=== PATIENT | female | born 1980 | race Caucasian/White ===

== ENCOUNTER 2018-01-11 17:25 | Emergency (ER) | payer OTHER ==
[2018-01-11 17:28] VITALS: BMI 25.7
[2018-01-11 17:34] VITALS: TEMP 98.1
--- NOTE | 2018-01-11 18:21 | ED PDOC ---
Arrival/HPI - General Chief Complaint: Dizziness/Lightheaded Time Seen by Provider: 01/11/18 17:34 Historian: Patient - History of Present Illness Narrative History of Present Illness (Text): 01/11/18 18:14 Pt is a 38 yr old [place] female with PMH of seizures, BIBA for vomiting and dizziness for the pst day. Pt reports vomiting yesterday twice but feels very unsteady on her feet and cannot walk. Patient has medication for seizures and had an EEG done recently, and has been compliant with her medication but feels like she is having a seizure. Also reports LLQ pain but no diarrhea or difficult BMs. Pt's LMP was 3 wks ago and is not sexually active. Her last meal was a sandwich at 1pm today and tolerated the meal well. Currently takes Keppra and Lamotrigine. Time/Duration: 24 hours Symptom Onset: Sudden Symptom Course: Unchanged, Worsening Quality: Unable to Describe Severity Level: 2 Activities at Onset: Rest Context: Home Past Medical History - Provider Review Nursing Documentation Reviewed: Yes - Travel History Have you recently traveled outside [place] w/in the past 3 mons?: No - Cardiac Hx Cardiac Disorders: No - Pulmonary Hx Respiratory Disorders: No - Neurological Hx Seizures: Yes - HEENT Hx HEENT Disorder: No - Renal Hx Renal Disorder: No - Endocrine/Metabolic Hx Endocrine Disorders: No - Hematological/Oncological Hx Blood Disorders: No - Integumentary Hx Dermatological Disorder: No - Musculoskeletal/Rheumatological Hx Musculoskeletal Disorders: No - Gastrointestinal Hx Gastrointestinal Disorders: No - Genitourinary/Gynecological Hx Genitourinary Disorders: No - Psychiatric Hx Psychophysiologic Disorder: No Hx Substance Use: No Family/Social History - Physician Review Nursing Documentation Reviewed: Yes Family/Social History: Unknown Family HX Smoking Status: Never Smoked Hx Alcohol Use: No Hx Substance Use: No Allergies/Home Meds Allergies/Adverse Reactions: Allergies No Known Allergies Allergy (Verified 01/11/18 17:28) Home Medications: Home Meds Medication Instructions Recorded Confirmed levETIRAcetam [Keppra] 0 mg PO DAILY 01/11/18 01/11/18 Review of Systems - Review of Systems Constitutional: Fatigue Eyes: Normal ENT: Normal Respiratory: Normal Cardiovascular: Normal Gastrointestinal: Abdominal Pain Genitourinary Female: Normal Musculoskeletal: Normal Skin: Normal Neurological: Normal, Dizziness, Gait Changes Endocrine: Normal Hemo/Lymphatic: Normal Psychiatric: Normal Physical Exam Vital Signs Temp Pulse Resp BP Pulse Ox 01/11/18 21:20 71 16 108/70 100 01/11/18 19:53 66 18 127/69 100 01/11/18 17:34 98.1 F 62 18 133/89 99 Temperature: Afebrile Blood Pressure: Normal Pulse: Regular Respiratory Rate: Normal Appearance: Positive for: Well-Appearing, Non-Toxic, Comfortable Pain Distress: None Mental Status: Positive for: Alert and Oriented X 3 - Systems Exam Head: Present: Atraumatic, Normocephalic Pupils: Present: PERRL, Sluggish Extroacular Muscles: Present: EOMI Conjunctiva: Present: Normal Mouth: Present: Moist Mucous Membranes Neck: Present: Normal Range of Motion Respiratory/Chest: Present: Clear to Auscultation, Good Air Exchange. No: Respiratory Distress, Accessory Muscle Use Cardiovascular: Present: Regular Rate and Rhythm, Normal S1, S2. No: Murmurs Abdomen: No: Tenderness, Distention, Peritoneal Signs Back: Present: Normal Inspection Upper Extremity: Present: Normal Inspection. No: Cyanosis, Edema Lower Extremity: Present: Normal Inspection. No: Edema Neurological: Present: GCS=15, CN II-XII Intact, Speech Normal Skin: Present: Warm, Dry, Normal Color. No: Rashes Psychiatric: Present: Alert, Oriented x 3, Normal Insight, Normal Concentration Medical Decision Making ED Course and Treatment: 01/11/18 18:21 Impression Pt is a 38 yr old [place] female with PMH of seizures, BIBA for vomiting and dizziness for the past day. Pt presents lethargic and uncooperative, possible post-ictal state; on exam, LLQ tenderness as well Plan Labs, zofran fluids Progress Note 01/11/18 19:03 Ativan 1mg STAT Head CT w/o contrast neuro consult Pt sates her neurologist in Dr Boswell in [facility] 01/11/18 20:11 Spoke with pts neurologist who indicated that pt was seen in office the other day; Keppra was being decreased while Lamictal was prescribed at a dose of 200mg bid but pt was only taking 100mg BID; pt had sudden drop from 200mg to 100mg overnight Medication schedule for next 2 wks as per specialist, and fully explained to patient: Week One: Lamicatal 125mg q12 Week Two: Lamicatal 150 mg q12 Keppra 1000mg q12 hrs every day x 2 weeks Follow up with neurologist on Saturday Treatment for UTI w macrobid STAT Home with macrobid 100 mg BID x 7 days 01/11/18 23:29 Pt stable on discharge - Lab Interpretations Lab Results: 01/11/18 17:47 01/11/18 17:47 Lab Results 01/11/18 19:27: Urine Opiates Screen Negative, Urine Methadone Screen Negative, Ur Barbiturates Screen Negative, Ur Phencyclidine Scrn Negative, Ur Amphetamines Screen Negative, U Benzodiazepines Scrn Negative, U Oth Cocaine Metabols Negative, U Cannabinoids Screen Negative 01/11/18 19:27: Urine Color Yellow, Urine Appearance Sl cloudy, Urine pH 6.5, Ur Specific [place] 1.010, Urine Protein Negative, Urine Glucose (UA) Negative, Urine Ketones 15 H, Urine Blood Negative, Urine Nitrate Negative, Urine Bilirubin Negative, Urine Urobilinogen 0.2, Ur Leukocyte Esterase Small H, Urine RBC 0 - 2, Urine WBC 2 - 5, Ur Epithelial Cells 1 - 3, Urine Bacteria Mod 01/11/18 17:47: Alcohol, Quantitative < 10 01/11/18 17:47: Sodium 143, Potassium 3.7, Chloride 103, Carbon Dioxide 26, Anion Gap 18, BUN 8, Creatinine 0.6 L, Est GFR ( Amer) > 60, Est GFR (Non -Af Amer) > 60, Random Glucose 101, Calcium 8.7, Magnesium 1.8, Total Bilirubin 0.3, AST 26, ALT 19, Alkaline Phosphatase 33 L, Total Protein 7.4, Albumin 4.4, Globulin 3.1, Albumin/Globulin Ratio 1.4 01/11/18 17:47: WBC 9.1, RBC 4.18, Hgb 12.9, Hct 37.7, MCV 90.2, MCH 30.9, MCHC 34.2, RDW 12.1, Plt Count 244, MPV 10.8, Gran % 70.3 H, Lymph % (Auto) 25.3, [place] % (Auto) 3.9, Eos % (Auto) 0.3 L, Baso % (Auto) 0.2, Gran # 6.36, Lymph # ( Auto) 2.3, [place] # (Auto) 0.4, Eos # (Auto) 0.0, Baso # (Auto) 0.02 - RAD Interpretation Radiology Orders: 01/11/18 19:05 HEAD W/O CONTRAST [CT] Stat - EKG Interpretation Interpreted by ED Physician: Yes (NSR with a rate of 63) - Medication Orders Current Medication Orders: Discontinued Medications Lorazepam (Ativan) 1 mg IVP ONCE ONE PRN Reason: Protocol Stop: 01/11/18 19:07 Last Admin: 01/11/18 19:15 Dose: 1 mg IVP Administration Document 01/11/18 19:15 RD (Rec: 01/11/18 19:15 RD [id number]) Charges for Administration # of IVP Administrations 1 Nitrofurantoin Macrocrystals (Macrobid) 100 mg PO STAT STA PRN Reason: Protocol Stop: 01/11/18 20:11 Last Admin: 01/11/18 20:33 Dose: 100 mg Ondansetron HCl (Zofran Inj) 4 mg IVP STAT STA Stop: 01/11/18 18:14 Last Admin: 01/11/18 18:22 Dose: 4 mg IVP Administration Document 01/11/18 18:22 RD (Rec: 01/11/18 18:22 RD [id number]) Charges for Administration # of IVP Administrations 1 Disposition/Present on Arrival - Present on Arrival Any Indicators Present on Arrival: Yes History of DVT/PE: No History of Uncontrolled Diabetes: No Urinary Catheter: No History of Decub. Ulcer: No History Surgical Site Infection Following: None - Disposition Have Diagnosis and Disposition been Completed?: Yes Diagnosis: Noncompliance with medication regimen, UTI (urinary tract infection) Disposition: HOME/ ROUTINE Disposition Time: 20:48 Patient Plan: Discharge Condition: GOOD Discharge Instructions (ExitCare): Urinary Tract Infections in Adults, Seizures , Adult (DC) Additional Instructions: Linda, thank you for letting us take care of you today. Your provider was MATTHEW Mario. You were treated for medication dosing error and a urinary tract infection. The emergency medical care you received today was directed at your acute symptoms. If you were prescribed any medication, please fill it and take as directed. It may take several days for your symptoms to resolve. Return to the Emergency Department if your symptoms worsen, do not improve, or if you have any other problems. Week ONE: Keppra 1000mg in the morning and 1000mg in the evening Lamicatal 125mg in the morning and 125mg in the evening Macrobid anitbiotic 100mg capsule in the morning and 100mg capsule in the evening for a urinary tract infection Week TWO: Keppra 1000mg in the morning and 1000mg in the evening Lamicatal 150mg in the morning and 150mg in the evening Please call your neurologist, Dr Boswell on SATURDAY If you have any sudden, alarming symptoms in the next 24hrs, return to the ER Please contact your doctor or call one of the physicians/clinics you have been referred to that are listed on the Patient Visit Information form that is included in your discharge packet. Bring any paperwork you were given at discharge with you along with any medications you are taking to your follow up visit. Our treatment cannot replace ongoing medical care by a primary care provider (PCP) outside of the emergency department. Thank you for allowing the [facility] team to be part of your care today. If you had an X-Ray or CT scan: A Radiologist will review the ED reading if any change in treatment is needed we will contact you. If you had a blood, urine, or wound culture: It will take several days for the results, if any change in treatment is needed we will contact you. Prescriptions: lamoTRIgine [LaMICtal] 125 mg PO Q12 7 Days #14 tab Lamotrigine [Lamictal] 150 mg PO Q12 7 Days #14 tablet Levetiracetam [Keppra] 1,000 mg PO Q12 14 Days #28 tablet Nitrofurantoin Macrocrystals [Macrobid] 100 mg PO BID 7 Days #14 cap Referrals: Tom Hillman, [Primary Care Provider] - Follow up with primary Forms: [employer] (Romansh), WORK NOTE
[2018-01-11 18:29] LABS: BASO # 0.02 K/mm3 (0.0-2.0); BASO % 0.2 % (0.0-3.0); EOS % 0.3 % (1.5-5.0); GRAN # 6.36 (1.4-6.5); GRAN % 70.3 % (50.0-68.0); HEMOGLOBIN 12.9 g/dL (12.0-16.0); LYMPH # 2.3 (1.2-3.4); LYMPH % 25.3 % (22.0-35.0); MEAN CELL VOLUME 90.2 fl (80.0-105.0); MEAN CORPUSCULAR HEMOGLOBIN 30.9 pg (25.0-35.0); MEAN CORPUSCULAR HGB CONC 34.2 g/dl (31.0-37.0); MEAN PLATELET VOLUME 10.8 fl (7.0-11.0); MONO # 0.4 (0.1-0.6); MONO % 3.9 % (1.0-6.0); RBC 4.18 10^6/uL (3.5-6.1); RED CELL DISTRIBUTION WIDTH 12.1 % (11.5-14.5); WHITE BLOOD COUNT 9.1 10^3/ul (4.5-11.0)
[2018-01-11 18:42] LABS: ALBUMIN 4.4 g/dL (3.0-4.8); CALCIUM 8.7 mg/dL (8.4-10.5); GFR AFRICAN-AMERICAN > 60; GFR NON-AFRICAN AMERICAN > 60
[2018-01-11 18:43] LABS: ALB/GLOB RATIO 1.4 (1.1-1.8)
[2018-01-11 19:18] LABS: ALT/SGPT 19 U/L (7-56); AST/SGOT 26 U/L (14-36); BLOOD UREA NITROGEN 8 mg/dL (7-21)
[2018-01-11 19:46] LABS: PHENCYCLIDINE, UR NEGATIVE (NEGATIVE)
[2018-01-11 19:49] LABS: PH,URINE 6.5 (4.7-8.0); URINE BILIRUBIN NEGATIVE (NEGATIVE); URINE BLOOD NEGATIVE (NEGATIVE); URINE GLUCOSE (UA) NEGATIVE (NEGATIVE); URINE LEUKOCYTE ESTERASE SMALL Leu/uL (NEGATIVE); URINE PROTEIN NEGATIVE mg/dL (<30 mg/dL); URINE UROBILINOGEN 0.2 E.U./dL (<1 E.U./dL)
[2018-01-11 19:53] LABS: BARBITURATES, UR NEGATIVE (NEGATIVE); BENZODIAZEPINES, UR NEGATIVE (NEGATIVE); OPIATES, UR NEGATIVE (NEGATIVE)
[2018-01-11 19:54] VITALS: O2SAT 100
[2018-01-11 19:55] LABS: URINE APPEARANCE SL CLOUDY (CLEAR); URINE COLOR YELLOW (YELLOW)
[2018-01-11 20:12] LABS: URINE BACTERIA MOD (NEG); URINE RBC 0 - 2 /hpf (0-2)
[2018-01-11 21:22] VITALS: BP 108/70; PULSE 71; RESP 16
--- NOTE | 2018-01-11 21:24 | CT ---
EXAM: CT Head Without Intravenous Contrast CLINICAL HISTORY: 38 years old, female; Condition or disease; Other: Seizures TECHNIQUE: Axial computed tomography images of the head/brain without intravenous contrast. All CT scans at this facility use one or more dose reduction techniques, viz.: automated exposure control; ma/kV adjustment per patient size (including targeted exams where dose is matched to indication; i.e. head); or iterative reconstruction technique. Coronal and sagittal reformatted images were created and reviewed. COMPARISON: No relevant prior studies available. FINDINGS: Brain: No hemorrhage. No significant white matter disease. No edema. Ventricles: No hydrocephalus. Bones/soft tissue: Skull is intact. Approximately 2 cm oval radiodense focus at the lateral aspect of the right mandible, question etiology. Further evaluation recommended. Sinuses: No acute sinusitis. Mastoid air cells: No mastoid effusion. IMPRESSION: No CT evidence of acute intracranial abnormality. Approximately 2 cm oval radiodense focus at the lateral aspect of the right mandible, question etiology. Further evaluation recommended.
--- NOTE | 2018-01-12 15:44 | CARD ---
APPROVED REPORT EKG Measurement Heart [id number] <Conclusion> Normal sinus rhythm Normal ECG
== END 2018-01-11 21:20 | disposition home or self-care (01) ==
LOC: ED 17:25
DX: N39.0 Urinary tract infection, site not specified (principal)
CPT/HCPCS: 70450; 80053; 80175; 80177; 80320; 80324; 80345; 80346; 80349; 80353; 80358; 80361; 81001; 83735; 83992; 85025; 87086; 93005; 96374; 96375; 99285; J2060; J2405

== ENCOUNTER 2018-05-09 16:40 | Emergency (ER) | payer OTHER ==
[2018-05-09 16:41] VITALS: BMI 25.7
[2018-05-09 17:08] VITALS: TEMP 98.4; O2SAT 100
--- NOTE | 2018-05-09 17:18 | ED PDOC ---
Arrival/HPI - General Historian: Patient - History of Present Illness Narrative History of Present Illness (Text): 05/09/18 16:48 38 y/o female with PMH of seizure disorder who presents to the ED c/o headache x 3 hours. Headache is circumferential around forehead and temples. She has not taken any medication for pain. Admits to associated intermittent photophobia, nausea, blurry vision, sore throat, difficulty with balance, and bilateral numbness to upper/lower extremities. She takes Lamictal 200mg bid and is compliant. Pt states she had a seizure this morning without a postictal period that consisted of a few seconds of "inability to talk or move". No head injury, LOC, tongue biting, incontinence. She has an neurology appointment and EEG with her neurologist Dr. Marinelli in [facility] on May 22. When asked about hydration, pt states she "never drinks water". Denies fever, chills, paresthesias, changes in speech, unilateral weakness or numbness, chest pain, palpitations, syncope,aura, jaw claudication, vomiting, abdominal pain, SOB, cough, rash, urinary symptoms. <Angelina Holguin - Last Filed: 05/09/18 20:16> <Jacky Roca - Last Filed: 05/10/18 15:52> - General Time Seen by Provider: 05/09/18 16:43 Past Medical History - Provider Review Nursing Documentation Reviewed: Yes - Cardiac Hx Cardiac Disorders: No - Pulmonary Hx Respiratory Disorders: No - Neurological Hx Seizures: Yes - HEENT Hx HEENT Disorder: No - Renal Hx Renal Disorder: No - Endocrine/Metabolic Hx Endocrine Disorders: No - Hematological/Oncological Hx Blood Disorders: No - Integumentary Hx Dermatological Disorder: No - Musculoskeletal/Rheumatological Hx Musculoskeletal Disorders: No - Gastrointestinal Hx Gastrointestinal Disorders: No - Genitourinary/Gynecological Hx Genitourinary Disorders: No - Psychiatric Hx Psychophysiologic Disorder: No Hx Substance Use: No <Angelina Holguin - Last Filed: 05/09/18 20:16> Family/Social History - Physician Review Nursing Documentation Reviewed: Yes Family/Social History: No Known Family HX Smoking Status: Never Smoked Hx Alcohol Use: No Hx Substance Use: No <Angelina Holguin - Last Filed: 05/09/18 20:16> Allergies/Home Meds <Angelina Holguin - Last Filed: 05/09/18 20:16> <Rush Rocayl - Last Filed: 05/10/18 15:52> Allergies/Adverse Reactions: Allergies No Known Allergies Allergy (Verified 05/09/18 17:07) Home Medications: Home Meds Medication Instructions Recorded Confirmed levETIRAcetam [Keppra] 0 mg PO DAILY 01/11/18 01/11/18 Review of Systems - Physician Review All systems were reviewed & negative as marked: Yes - Review of Systems Constitutional: Fatigue. absent: Fevers Eyes: Vision Changes (blurry vision), Photophobia. absent: Eye Pain ENT: Sore Throat. absent: Hearing Changes, Tinnitus, Rhinorrhea, Epistaxis, Sinus Congestion Respiratory: Normal. absent: SOB, Cough, Sputum Cardiovascular: Normal. absent: Chest Pain, Palpitations, Syncope Gastrointestinal: Normal Genitourinary Female: Normal. absent: Dysuria, Frequency, Vaginal Bleeding, Vaginal Discharge Musculoskeletal: Neck Pain (paraspinal cervical, left sided) Skin: Normal. absent: Rash Neurological: Headache Endocrine: absent: Diaphoresis <ChasewillAngelina - Last Filed: 05/09/18 20:16> Physical Exam Vital Signs Reviewed: Yes Temperature: Afebrile Blood Pressure: Normal Pulse: Regular Respiratory Rate: Normal Appearance: Positive for: Well-Appearing, Non-Toxic, Comfortable Pain Distress: None Mental Status: Positive for: Alert and Oriented X 3 - Systems Exam Head: Present: Atraumatic, Normocephalic Pupils: Present: PERRL Extroacular Muscles: Present: EOMI Conjunctiva: Present: Normal Ears: Present: Normal Mouth: Present: Dry Pharnyx: Present: Normal. No: ERYTHEMA, EXUDATE, TONSILS ENLARGED Nose (External): Present: Atraumatic Nose (Internal): Present: Normal Inspection, Moist, Clear Mucous Neck: Present: Normal Range of Motion, Paraspinal Tenderness (left side). No: MIDLINE TENDERNESS, Lymphadenopathy Respiratory/Chest: Present: Clear to Auscultation, Good Air Exchange. No: Respiratory Distress, Accessory Muscle Use Cardiovascular: Present: Regular Rate and Rhythm, Normal S1, S2, Peripheal P ulses Present. No: Murmurs Abdomen: No: Tenderness, Distention, Peritoneal Signs Back: Present: Normal Inspection. No: Midline Tenderness, Paraspinal Tenderness Upper Extremity: Present: Normal Inspection, Normal ROM, NORMAL PULSES Lower Extremity: Present: Normal Inspection, NORMAL PULSES, Normal ROM Neurological: Present: GCS=15, CN II-XII Intact, Speech Normal, Motor Func Grossly Intact, Normal Sensory Function, Normal Cerebellar Funct, Gait Normal, Memory Normal Skin: Present: Warm, Dry, Normal Color. No: Rashes Lymphatic: No: Cervical Adenopathy Psychiatric: Present: Alert, Oriented x 3, Normal Insight, Normal Concentration <Angelina Holguin - Last Filed: 05/09/18 20:16> Vital Signs Temp Pulse Resp BP Pulse Ox 05/09/18 19:50 98.4 F 65 18 117/78 100 05/09/18 18:16 65 18 117/78 100 05/09/18 17:03 98.4 F 63 17 118/76 100 <Jacky Roca - Last Filed: 05/10/18 15:52> Medical Decision Making ED Course and Treatment: 05/09/18 17:54 38 y/o female with PMH of seizure disorder who presents to the ED c/o headache x 3 hours. Headache is circumferential around forehead and temples. She has not taken any medication for pain. Admits to associated intermittent photophobia, nausea, blurry vision, sore throat, difficulty with balance, and bilateral numbness to upper/lower extremities. She takes Lamictal 200mg bid and is compliant. Pt states she had a seizure this morning without a postictal period that consisted of a few seconds of "inability to talk or move". No head injury, LOC, tongue biting, incontinence. She has an neurology appointment and EEG with her neurologist Dr. Marinelli in [facility] on May 22. When asked about hydration, pt states she "never drinks water". Denies fever, chills, paresthesias, changes in speech, unilateral weakness or numbness, chest pain, palpitations, syncope,aura, jaw claudication, vomiting, abdominal pain, SOB, cough, rash, urinary symptoms. Will give IV fluid bolus Will get labs (CBC, CMP) Will check lamictal levels Dr. Roca also saw and evaluated pt. Recommends phone call to Dr. Romero, the neurologist tonsorial artist. 05/09/18 18:17 Spoke with neurology tonsorial artist, Dr. Romero. She states that the pts symptoms are not anatomical and after bloodwork is reviewed, she recommends outpatient followup. Dr. Romero does not recommend admission or any brain imaging at this time. She recommends an extra 200mg dose of Lamictal in addition to patient's typical regimen. Dr. Romero states she will call Dr. Marinelli to help facilitate scheduling of outpatient MRI. Will give 200mg Lamictal PO 05/09/18 18:49 Pt reassessed after fluid bolus, feeling better. Concerned about the extra dose of Lamictal. Will consult Dr. Romero. Spoke with Dr. Romero who confirmed total dose of 600mg Lamictal today (regular regimen + extra dose). Gave Dr. Nick Marinelli's information so that they can discuss pt's outpatient followup. 05/09/18 19:13 Pt offered medicine for headache again, pt refuses. 05/09/18 19:16 Impression: Headache Plan: Increase fluid intake Take 200mg Lamictal dose tonight as scheduled Followup with neurologist within 2 days Followup with primary doctor within 2 days Return to ED if symptoms persist or worsen Plan discussed with pt and family who understand and agree. Pt comfortable with discharge home. - Lab Interpretations I have reviewed the lab results: Yes Interpretation: All labs normal <Angelina Holguin - Last Filed: 05/09/18 20:16> - Lab Interpretations Lab Results: 05/09/18 18:00 05/09/18 18:00 Lab Results 05/09/18 18:02: Urine Color Yellow, Urine Appearance Clear, Urine pH 7.0, Ur Specific Al[place] 1.015, Urine Protein Negative, Urine Glucose (UA) Negative, Urine Ketones Negative, Urine Blood Negative, Urine Nitrate Negative, Urine Bilirubin Negative, Urine Urobilinogen 0.2, Ur Leukocyte Esterase Negative 05/09/18 18:00: Sodium 141, Potassium 4.2, Chloride 103, Carbon Dioxide 29, Anion Gap 13, BUN 8, Creatinine 0.6 L, Est GFR ( Amer) > 60, Est GFR (Non-Af Amer) > 60, Random Glucose 119 H, Calcium 9.0, Total Bilirubin 0.2, AST 20, ALT 16, Alkaline Phosphatase 40, Total Protein 7.3, Albumin 4.3, Globulin 2.9, Albumin/Globulin Ratio 1.5 05/09/18 18:00: WBC 8.7, RBC 4.36, Hgb 13.5, Hct 40.4, MCV 92.7, MCH 31.0, MCHC 33.4, RDW 12.2, Plt Count 227, MPV 10.7, Gran % 62.4, Lymph % (Auto) 28.8, [place] % (Auto) 7.8 H, Eos % (Auto) 0.7 L, Baso % (Auto) 0.3, Gran # 5.42, Lymph # (Auto) 2.5, [place] # (Auto) 0.7 H, Eos # (Auto) 0.1, Baso # (Auto) 0.03 - Medication Orders Current Medication Orders: Discontinued Medications Sodium Chloride (Sodium Chloride 0.9%) 1,000 mls @ 999 mls/hr IV .Q1H1M STA Stop: 05/09/18 18:45 Last Admin: 05/09/18 18:04 Dose: 999 mls/hr eMAR Start Stop Document 05/09/18 18:04 OCS (Rec: 05/09/18 18:04 OCS [id number]) Intravenous Solution Start Date 05/09/18 Start Time 18:04 End Date 05/09/18 End time 19:05 Total Infusion Time 61 Lamotrigine (Lamictal) 200 mg PO STAT STA; Protocol Stop: 05/09/18 18:12 Last Admin: 05/09/18 19:52 Dose: 200 mg <ChanelleJacky - Last Filed: 05/10/18 15:52> - PA / PRESS TENDER SMOKE SIGNAL / Resident Statement GERTRUDIS has reviewed & agrees with the documentation as recorded. GERTRUDIS has examined the patient and agrees with the treatment plan. <Bosompem,Jacky - Last Filed: 05/10/18 15:52> Disposition/Present on Arrival - Present on Arrival Any Indicators Present on Arrival: No History of DVT/PE: No History of Uncontrolled Diabetes: No Urinary Catheter: No History Surgical Site Infection Following: None - Disposition Have Diagnosis and Disposition been Completed?: Yes Disposition Time: 19:15 Patient Plan: Discharge <Angelina Holguin - Last Filed: 05/09/18 20:16> <BoskierstenJacky - Last Filed: 05/10/18 15:52> - Disposition Diagnosis: Headache Disposition: HOME/ ROUTINE Condition: IMPROVED Discharge Instructions (ExitCare): Headache, Adult Additional Instructions: Increase fluid intake Take 200mg Lamictal dose tonight as scheduled Followup with neurologist within 2 days Followup with primary doctor within 2 days Return to ED if symptoms persist or worsen Referrals: Gerardo WILLS,Lenin Moeller MD [Primary Care Provider] - Follow up with primary Forms: WORK NOTE
[2018-05-09] MEDS ORDERED: Sodium Chloride 0.9% 1,000 ML IV STA (17:45)
[2018-05-09 18:09] LABS: URINE BILIRUBIN NEGATIVE (NEGATIVE); URINE BLOOD NEGATIVE (NEGATIVE); URINE GLUCOSE (UA) NEGATIVE (NEGATIVE); URINE LEUKOCYTE ESTERASE NEGATIVE Leu/uL (NEGATIVE); URINE PROTEIN NEGATIVE mg/dL (<30 mg/dL); URINE UROBILINOGEN 0.2 E.U./dL (<1 E.U./dL)
[2018-05-09 18:10] LABS: URINE APPEARANCE CLEAR (CLEAR); URINE COLOR YELLOW (YELLOW)
[2018-05-09 18:18] VITALS: BP 117/78; PULSE 65; RESP 18
[2018-05-09 18:27] LABS: BASO # 0.03 K/mm3 (0.0-2.0); BASO % 0.3 % (0.0-3.0); EOS # 0.1 (0.0-0.7); EOS % 0.7 % (1.5-5.0); GRAN # 5.42 (1.4-6.5); GRAN % 62.4 % (50.0-68.0); HEMOGLOBIN 13.5 g/dL (12.0-16.0); LYMPH # 2.5 (1.2-3.4); LYMPH % 28.8 % (22.0-35.0); MEAN CELL VOLUME 92.7 fl (80.0-105.0); MEAN CORPUSCULAR HGB CONC 33.4 g/dl (31.0-37.0); MEAN PLATELET VOLUME 10.7 fl (7.0-11.0); MONO # 0.7 (0.1-0.6); MONO % 7.8 % (1.0-6.0); RBC 4.36 10^6/uL (3.5-6.1); RED CELL DISTRIBUTION WIDTH 12.2 % (11.5-14.5); WHITE BLOOD COUNT 8.7 10^3/ul (4.5-11.0)
[2018-05-09 18:36] LABS: ALB/GLOB RATIO 1.5 (1.1-1.8); ALBUMIN 4.3 g/dL (3.0-4.8); ALT/SGPT 16 U/L (7-56); AST/SGOT 20 U/L (14-36); BLOOD UREA NITROGEN 8 mg/dL (7-21); GFR NON-AFRICAN AMERICAN > 60
== END 2018-05-09 19:50 | disposition home or self-care (01) ==
LOC: ED 16:40
DX: R51 Headache (principal)
CPT/HCPCS: 80053; 80175; 81003; 85025; 96360; 99285; J7030